=== PATIENT | female | born 1955 ===

== ENCOUNTER 2021-07-18 10:30 | Inpatient (IN) | payer OTHER ==
[~2021-07-18] VITALS: Ht 160 cm; Wt 90.7 kg
[2021-07-18] MEDS ORDERED: SINGULAIR 10MG10 MG PO (14:08)
[2021-07-18] MEDS ORDERED: NORVASC5 MG PO (14:08)
[2021-07-18] MEDS ORDERED: TRICOR145 MG PO (14:08)
[2021-07-18] MEDS ORDERED: HYZAAR 50-12.51 EACH PO (14:08)
[2021-07-18] MEDS ORDERED: FLONASE16 GM (14:09)
[2021-07-18] MEDS ORDERED: PROTONIX40 MG PO (14:09)
[2021-07-18] MEDS ORDERED: CLARINEX-D 121 EACH PO (14:09)
[2021-07-18] MEDS ORDERED: MULTIPLE VITAM1 EAC2 PO (14:10)
[2021-07-18] MEDS ORDERED: VASOFLEX SOFTG1 EACH PO (14:10)
[2021-07-23] MEDS ORDERED: FAMOTIDINE20 MG (14:32)
[2021-07-23] MEDS ORDERED: DESLORATADINE5 MG (14:32)
[2021-07-23] MEDS ORDERED: OMEPRAZOLE20 MG (14:33)
== END 2021-07-25 19:13 | DRG 470 ==
LOC: SURH 07-23 07:00 → O/R 07-23 08:44 → SURH 07-23 10:30
PROVIDERS: ADMIT Orthopaedic Surgery; ATTEND Orthopaedic Surgery
PROC: 0SR90JZ Replacement of Right Hip Joint with Synthetic Substitute, Open Approach (ICD-10-PCS; principal; 2021-07-23 07:00)
DX: M16.11 Unilateral primary osteoarthritis, right hip (principal); D62 Acute posthemorrhagic anemia

== ENCOUNTER 2021-08-10 09:45 | Emergency (ER) | payer OTHER ==
[~2021-08-10] VITALS: Ht 152.4 cm; Wt 96.2 kg
[~2021-08-10 09:45] MED LIST: CLARINEX-D 121 EACH PO; DESLORATADINE5 MG; FAMOTIDINE20 MG; FLONASE16 GM; HYZAAR 50-12.51 EACH PO; MULTIPLE VITAM1 EAC2 PO; NORVASC5 MG PO; OMEPRAZOLE20 MG; PROTONIX40 MG PO; SINGULAIR 10MG10 MG PO; TRICOR145 MG PO; VASOFLEX SOFTG1 EACH PO
== END 2021-08-10 15:46 | disposition home or self-care (01) ==
LOC: ER 09:45
DX: T84.020A Dislocation of internal right hip prosthesis, initial encounter (principal)

== ENCOUNTER 2022-10-27 12:01 | Outpatient (CLI) | payer OTHER | END 2022-10-27 12:22 | disposition home or self-care (01) | LOC: TOM 12:01 | PROVIDERS: ATTEND Orthopaedic Surgery | DX: M21.70 Unequal limb length (acquired), unspecified site (principal) ==